=== PATIENT | male | born 1930 | race Caucasian/White ===

== ENCOUNTER 2017-03-28 13:18 | Emergency (ER) | payer MEDICARE | END 2017-03-28 14:29 | disposition left against medical advice (07) | LOC: UCEAST 13:18 | DX: M20.002 Unspecified deformity of left finger(s) (principal); Z53.21 Procedure and treatment not carried out due to patient leaving prior to being seen by health care provider ==

== ENCOUNTER 2018-02-22 16:04 | Emergency (ER) | payer MEDICARE ==
[2018-02-22 16:16] VITALS: BP 179/80
--- NOTE | 2018-02-22 16:59 | ED ---
Loi Caraballo Jade[facility] on 02/22/18 at 1655 . Shortness of Breath - HPI Summary HPI Summary: In Room Note: Pt is a 87 y/o male who presents to [facility] c/o SOB. Pt states he has become increasingly SOB over the past week, and is chronically SOB. 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 He went to [place] because he couldnt breathe. Last night he couldnt sleep because he stopped breathing when he would fall asleep. He denies any N/V/D, or CP. As per son, her looks pale, and normally is active but hasnt been in 6 months or so. Albuterol usually helps with the SOB, but not anymore. Nurses Note: SHORT OF BREATH when you wake up and more recently all the time. Pain 0/10 in intensity. Note: Pt on multiple medications for DM and HTN. Visit history significant for asbestosis. CT 2014 notes asbestos exposure changes, chronic lung findings, and emphysematous changes. - History of Current Complaint Chief Complaint: UCRespiratory Time Seen by Provider: 02/22/18 16:07 Hx Obtained From: Patient Onset/Duration: Gradual Onset, Lasting Weeks - 1 week, Still Present Aggrevating Factors: Movement Associated Signs & Symptoms: Cough (Productive) - Allergy/Home Medications Allergies/Adverse Reactions: Allergies Allergy/AdvReac Type Severity Reaction Status Date / Time No Known Allergies Allergy Verified 02/22/18 16:16 Home Medications: Home Medications Mometasone 220 MCG MDI * [Asmanex 220 MCG MDI *] 2 puff INH DAILY 02/22/18 [ History Confirmed 02/22/18] PMH/Surg Hx/FS Hx/Imm Hx Endocrine/Hematology History: Reports: Hx Diabetes Cardiovascular History: Reports: Hx Hypertension GI History: Reports: Other GI Disorders - hx colon ca History: Reports: Hx Renal Disease - abnormal gfr Musculoskeletal History: Reports: Hx Rheumatoid Arthritis Neurological History: Reports: Other Neuro Impairments/Disorders - ?tia - Cancer History Cancer Type, Location and Year: colon cancer 6yrs ago no radiation or chemo. - Surgical History Surgery Procedure, Year, and Place: colon resection 6 yrs ago.tonsilectomy Infectious Disease History: No Infectious Disease History: Denies: Traveled Outside the [place] in Last 30 Days - Family History Known Family History: Negative: Hypertension - Social History Lives: Alone Alcohol Use: None Substance Use Type: Reports: None Smoking Status (MU): Former Smoker Review of Systems - ROS Summary Review of Systems Summary: POSITIVE: SOB NEGATIVE: N/V/D, CP Negative: Fever Negative: Chest Pain Positive: Shortness Of Breath Negative: Vomiting, Diarrhea, Nausea All Other Systems Reviewed And Are Negative: Yes Physical Exam - Summary Physical Exam Summary: Appearance: The patient appears pale. Eyes: Conjunctiva are clear. ENT: The hearing is grossly normal, the pharynx is normal, and the TMs are normal. There is no muffled or hoarse voice. Neck: The neck is supple and there is no lymphadenopathy. Respiratory: The chest is nontender. The lungs are clear, with shallow breathing. His pulse oxygen is between 93 and 95. Frequent coughs. Cardiovascular: Heart is regular rate and rhythm. There is no murmur. Abdomen: The abdomen is soft and nontender. There is no organomegaly. Bowel sounds: present Musculoskeletal: Strength is intact. The patient moves all extremities. Neurological: The patient is alert. Psychological: The patient displays age appropriate behavior Skin: Negative for rashes. Triage Information Reviewed: Yes Vital Signs On Initial Exam: Initial Vitals Temp Pulse Resp BP Pulse Ox 98.6 F 105 24 179/80 96 02/22/18 16:10 02/22/18 16:10 02/22/18 16:10 02/22/18 16:10 02/22/18 16:10 Vital Signs Reviewed: Yes Diagnostics - Vital Signs Vital Signs Temp Pulse Resp BP Pulse Ox 02/22/18 16:10 98.6 F 105 24 179/80 96 - Laboratory Lab Statement: Any lab studies that have been ordered have been reviewed, and results considered in the medical decision making process. - EKG 16:06 Cardiac Rate: NL - 96 bpm EKG Rhythm: Sinus Rhythm EKG Interpretation: LBBB, no acute ischemia. Course/Dx - Course Course Of Treatment: 87 y/o with asbestosis and history of colon cancer with increasing SOB over the last week. The pt finds his SOB now significantly debilitating. His EKG shows a LBBB. The pt denies temperature in the [facility]. He is supine with a pulse Ox ranging from 93-95. He frequently coughs. Of particular note is the fact that his current medications are no longer working. It may be that pt has an acute condition on top of his chronic condition, such as an infection. In a conversation with the patient and the son , it was decided he would go to the ED for further evaluation and treatment as needed. Medications have been included in the original chart and reviewed. - Diagnoses Differential Diagnosis/HQI/PQRI: Positive: COPD Exacerbation, Pulmonary Embolism Provider Diagnoses: Acute dyspnea Discharge - Sign-Out/Discharge Documenting (check all that apply): Discharge/Admit/Transfer - Discharge Plan Condition: Stable Disposition: HOME Patient Education Materials: Dyspnea (ED) Referrals: Je Silveira MD [Primary Care Provider] - Additional Instructions: As we discussed: Go to the emergency room now. Your increasing shortness of breath and inability to use her medications with effect needs further evaluation. You may have an infection thing else new. You may need new medications or home oxygen in order to find a way to function in your everyday activities. - Billing Disposition and Condition Condition: STABLE Disposition: Home The documentation as recorded by the Loi bird Jade accurately reflects the service I personally performed and the decisions made by me, Cole Riddle MD.
== END 2018-02-22 17:06 | disposition home or self-care (01) ==
LOC: UCEAST 16:04
DX: R06.00 Dyspnea, unspecified (principal); R05 Cough; I44.7 Left bundle-branch block, unspecified; E11.9 Type 2 diabetes mellitus without complications; Z79.84 Long term (current) use of oral hypoglycemic drugs; I10 Essential (primary) hypertension; N28.9 Disorder of kidney and ureter, unspecified; M06.9 Rheumatoid arthritis, unspecified; Z85.038 Personal history of other malignant neoplasm of large intestine; Z87.891 Personal history of nicotine dependence
CPT/HCPCS: 93005; 99212; G0463

== ENCOUNTER 2018-02-22 17:21 | Inpatient (IN) | payer MEDICARE ==
[2018-02-22 18:26] LABS: ABS Basophils 0 10^3/ul (0-0.2); ABS Eosinophils 0.1 10^3/ul (0-0.6); ABS Lymphocytes 0.8 10^3/ul (1.0-4.8); ABS Monocytes 0.4 10^3/ul (0-0.8); ABS Neutrophils 4.7 10^3/ul (1.5-7.7); ABS Nucleated RBC 0 10^3/ul; Eosinophil % 1.4 % (0-6); Hematocrit 29 % (42-52); Lymphocyte % 13.6 % (25-47); Mean Corpuscular HGB Conc 34 g/dl (31-36); Mean Corpuscular Hemoglobin 31 pg (27-31); Mean Corpuscular Volume 91 fL (80-94); Mean Platelet Volume 8.4 um3 (7.4-10.4); Nucleated Red Blood Cells % 0; Platelet Count 158 10^3/ul (150-450); Red Blood Count 3.21 10^6/ul (4.0-5.4); Red Cell Distribution Width 14 % (10.5-15); White Blood Count 6.1 10^3/ul (3.5-10.8)
[2018-02-22 18:43] LABS: EGFR Non-African American 43.4 (>60)
[2018-02-22] MEDS ORDERED: Furosemide IV* 10 MG/ML VIAL (40 MG) IV SLOW PU ONE (18:55)
--- NOTE | 2018-02-22 19:15 | ED ---
Diana Caraballo Julia, scribed for Kwabena Henry MD on 02/22/18 at 1753 . Shortness of Breath - HPI Summary HPI Summary: This patient is a 87 year old M presenting to [facility] with a chief complaint of SOB for the past two days. Patient reports cough. SOB worsened with exertion and by laying flat. Denies CP and lower extremity swelling. - History of Current Complaint Chief Complaint: EDShortnessOfBreath Time Seen by Provider: 02/22/18 17:42 Hx Obtained From: Patient Onset/Duration: Lasting Days Timing: Constant Aggrevating Factors: Movement, Recumbent Position Associated Signs & Symptoms: Cough (Bloody Sputum) - Allergy/Home Medications Allergies/Adverse Reactions: Allergies Allergy/AdvReac Type Severity Reaction Status Date / Time No Known Allergies Allergy Verified 02/22/18 16:16 Home Medications: Home Medications Albuterol HFA INHALER* [Ventolin HFA Inhaler*] 1 puff INH Q6H PRN 02/22/18 [ History Confirmed 02/22/18] Aspirin TAB* [Aspirin 325 MG TAB*] 325 mg PO EVERY OTHER DAY 02/22/18 [History Confirmed 02/22/18] Lactose-Reduced Food [Ensure Active High Protein] 1.5 btl PO DAILY 02/22/18 [ History Confirmed 02/22/18] Mometasone 220 MCG MDI * [Asmanex 220 MCG MDI *] 1 puff INH BID 02/22/18 [ History Confirmed 02/22/18] metFORMIN* [Glucophage 1000 MG TAB *] 1,000 mg PO DAILY 02/22/18 [History Confirmed 02/22/18] PMH/Surg Hx/FS Hx/Imm Hx Endocrine/Hematology History: Reports: Hx Diabetes Cardiovascular History: Reports: Hx Hypertension GI History: Reports: Other GI Disorders - hx colon ca History: Reports: Hx Renal Disease - abnormal gfr Musculoskeletal History: Reports: Hx Rheumatoid Arthritis Neurological History: Reports: Other Neuro Impairments/Disorders - ?tia - Cancer History Cancer Type, Location and Year: colon cancer 6yrs ago no radiation or chemo. - Surgical History Surgery Procedure, Year, and Place: colon resection 6 yrs ago.tonsilectomy Infectious Disease History: No Infectious Disease History: Denies: Traveled Outside the US in Last 30 Days - Family History Known Family History: Negative: Hypertension - Social History Alcohol Use: None Substance Use Type: Reports: None Smoking Status (MU): Former Smoker Review of Systems Negative: Chest Pain Positive: Shortness Of Breath, Cough Negative: Myalgia, Edema All Other Systems Reviewed And Are Negative: Yes Physical Exam - Summary Physical Exam Summary: VITAL SIGNS: Reviewed. GENERAL: Patient is a well-developed and nourished male who is lying comfortable in the stretcher. Patient is not in any acute respiratory distress. HEAD AND FACE: No signs of trauma. No ecchymosis, hematomas or skull depressions. No sinus tenderness. EYES: PERRLA, EOMI x 2, No injected conjunctiva, no nystagmus. EARS: Hearing grossly intact. Ear canals and tympanic membranes are within normal limits. MOUTH: Oropharynx within normal limits. NECK: Supple, trachea is midline, no adenopathy, no JVD, no carotid bruit, no c- spine tenderness, neck with full ROM. CHEST: Symmetric, no tenderness at palpation LUNGS: decreased breath sounds bilaterally, crackles in bases bilaterally CVS: Regular rate and rhythm, S1 and S2 present, no murmurs or gallops appreciated. ABDOMEN: Soft, non-tender. No signs of distention. No rebound no guarding, and no masses palpated. Bowel sounds are normal. EXTREMITIES: FROM in all major joints, no edema, no cyanosis or clubbing. NEURO: Alert and oriented x 3. No acute neurological deficits. Speech is normal and follows commands. SKIN: Dry and warm Triage Information Reviewed: Yes Vital Signs On Initial Exam: Initial Vitals Temp Pulse Resp BP Pulse Ox 98.3 F 103 26 178/82 97 02/22/18 17:28 02/22/18 17:28 02/22/18 17:28 02/22/18 17:28 02/22/18 17:28 Vital Signs Reviewed: Yes Diagnostics - Vital Signs Vital Signs Temp Pulse Resp BP Pulse Ox 02/22/18 17:46 103 182/129 95 02/22/18 17:44 104 93 02/22/18 17:28 98.3 F 103 26 178/82 97 - Laboratory Lab Results: Lab Results 02/22/18 02/22/18 02/22/18 Range/Units 18:15 18:15 18:15 WBC 6.1 (3.5-10.8) 10^3/ul RBC 3.21 L (4.0-5.4) 10^6/ul Hgb 10.0 L (14.0-18.0) g/dl Hct 29 L (42-52) % MCV 91 (80-94) fL MCH 31 (27-31) pg MCHC 34 (31-36) g/dl RDW 14 (10.5-15) % Plt Count 158 (150-450) 10^3/ul MPV 8.4 (7.4-10.4) um3 Neut % (Auto) 77.0 (38-83) % Lymph % (Auto) 13.6 L (25-47) % [place] % (Auto) 7.3 H (0-7) % Eos % (Auto) 1.4 (0-6) % Baso % (Auto) 0.7 (0-2) % Absolute Neuts (auto) 4.7 (1.5-7.7) 10^3/ul Absolute Lymphs (auto) 0.8 L (1.0-4.8) 10^3/ul Absolute Monos (auto) 0.4 (0-0.8) 10^3/ul Absolute Eos (auto) 0.1 (0-0.6) 10^3/ul Absolute Basos (auto) 0 (0-0.2) 10^3/ul Absolute Nucleated RBC 0 10^3/ul Nucleated RBC % 0 APTT (26.0-36.3) seconds Sodium 136 L (139-145) mmol/L Potassium 4.3 (3.5-5.0) mmol/L Chloride 105 (101-111) mmol/L Carbon Dioxide 21 L (22-32) mmol/L Anion Gap 10 (2-11) mmol/L BUN 29 H (6-24) mg/dL Creatinine 1.53 H (0.67-1.17) mg/dL Est GFR ( Amer) 55.8 (>60) Est GFR (Non-Af Amer) 43.4 (>60) BUN/Creatinine Ratio 19.0 (8-20) Glucose 207 H (70-100) mg/dL Lactic Acid 1.4 (0.5-2.0) mmol/L Calcium 8.9 (8.6-10.3) mg/dL Total Bilirubin 0.70 (0.2-1.0) mg/dL AST 14 (13-39) U/L ALT 14 (7-52) U/L Alkaline Phosphatase 57 (34-104) U/L Total Creatine Kinase 112 (10-223) U/L CK-MB (CK-2) 5.6 (0.6-6.3) ng/mL Troponin I 0.07 H* (<0.04) ng/mL C-Reactive Protein 28.71 H (< 5.00) mg/L B-Natriuretic Peptide ( - 100) pg/mL Total Protein 6.6 (6.4-8.9) g/dL Albumin 3.8 (3.2-5.2) g/dL Globulin 2.8 (2-4) g/dL Albumin/Globulin Ratio 1.4 (1-3) 02/22/18 02/22/18 Range/Units 18:15 18:15 WBC (3.5-10.8) 10^3/ul RBC (4.0-5.4) 10^6/ul Hgb (14.0-18.0) g/dl Hct (42-52) % MCV (80-94) fL MCH (27-31) pg MCHC (31-36) g/dl RDW (10.5-15) % Plt Count (150-450) 10^3/ul MPV (7.4-10.4) um3 Neut % (Auto) (38-83) % Lymph % (Auto) (25-47) % [place] % (Auto) (0-7) % Eos % (Auto) (0-6) % Baso % (Auto) (0-2) % Absolute Neuts (auto) (1.5-7.7) 10^3/ul Absolute Lymphs (auto) (1.0-4.8) 10^3/ul Absolute Monos (auto) (0-0.8) 10^3/ul Absolute Eos (auto) (0-0.6) 10^3/ul Absolute Basos (auto) (0-0.2) 10^3/ul Absolute Nucleated RBC 10^3/ul Nucleated RBC % APTT 29.4 (26.0-36.3) seconds Sodium (139-145) mmol/L Potassium (3.5-5.0) mmol/L Chloride (101-111) mmol/L Carbon Dioxide (22-32) mmol/L Anion Gap (2-11) mmol/L BUN (6-24) mg/dL Creatinine (0.67-1.17) mg/dL Est GFR ( Amer) (>60) Est GFR (Non-Af Amer) (>60) BUN/Creatinine Ratio (8-20) Glucose (70-100) mg/dL Lactic Acid (0.5-2.0) mmol/L Calcium (8.6-10.3) mg/dL Total Bilirubin (0.2-1.0) mg/dL AST (13-39) U/L ALT (7-52) U/L Alkaline Phosphatase (34-104) U/L Total Creatine Kinase (10-223) U/L CK-MB (CK-2) (0.6-6.3) ng/mL Troponin I (<0.04) ng/mL C-Reactive Protein (< 5.00) mg/L B-Natriuretic Peptide 1685 H ( - 100) pg/mL Total Protein (6.4-8.9) g/dL Albumin (3.2-5.2) g/dL Globulin (2-4) g/dL Albumin/Globulin Ratio (1-3) Result Diagrams: 02/22/18 18:15 02/22/18 18:15 Lab Statement: Any lab studies that have been ordered have been reviewed, and results considered in the medical decision making process. - EKG 1849 Cardiac Rate: NL EKG Rhythm: Sinus Rhythm - 90 BPM EKG Interpretation: LBBB Course/Dx - Course Assessment/Plan: This patient is a 87-year-old male who presents to the emergency department with a chief complaint of having shortness of breath. He denies any chest pain. The patient has past medical history significant for COPD, diabetes, colon cancer, hypertension, rheumatoid arthritis, liver disease. Initially the patient was placed on a monitor technician, IV access was obtained. Blood test results without any significant abnormality except normocytic normochromic anemia, sodium 136, be 129, creatinine 1.53, glucose 207 , troponin is 0.07, CRP of 20.7, ENP is 1695. EKG is a sinus rhythm at 90 bpm with a left bundle branch block. Chest x-ray impression: In the ED course the patient was placed in the nasal cannula with 2 L of oxygen, the patient was given Lasix seem to be a significant elevated. I believe that HIS symptoms are secondary to congestive heart failure. I discuss my physical exam, findings and test results with Dr. Butler from the hospitalist services and he agrees to admit patient to his services. Patient is hemodynamically stable alert and oriented x 3. - Diagnoses Provider Diagnoses: CHF exacerbation, Elevated troponin, Renal insufficiency Discharge - Sign-Out/Discharge Documenting (check all that apply): Discharge/Admit/Transfer - Discharge Plan Condition: Stable Disposition: ADMITTED TO [facility] Referrals: Je Silveira MD [Primary Care Provider] - - Billing Disposition and Condition Condition: STABLE Disposition: Admitted to [facility] The documentation as recorded by the Diana bird Julia accurately reflects the service I personally performed and the decisions made by me, Kwabena Henry MD.
--- NOTE | 2018-02-22 19:24 | RAD ---
INDICATION: Difficulty breathing COMPARISON: CT of the chest January 03, 2015 that demonstrate centrilobular emphysematous changes and calcified pleural plaques TECHNIQUE: PA and lateral views of the chest were obtained. FINDINGS: There is mild cardiomegaly similar to the previous CT of the chest. There is mild calcification overlying the arch of the aorta. There are patchy densities overlying the bilateral lungs. The increased density overlying the upper lungs correspond to calcified pleural plaque seen on the previous CT of the chest. Visualized bones are normal for the patient's age. There is no radiographic evidence of free air beneath the diaphragm IMPRESSION: 1. CHEST X-RAY FINDINGS COULD BE DUE TO CARDIOGENIC PULMONARY EDEMA ACCORDING TO THE PATIENT'S CLINICAL PRESENTATION. 2. INCREASED DENSITIES OVERLYING THE LUNGS CORRESPONDING TO CALCIFIED PLEURAL PLAQUE SEEN ON THE PREVIOUS CT OF THE CHEST. PLEASE CORRESPOND TO A HISTORY OF ASBESTOS EXPOSURE.
[2018-02-22] MEDS ORDERED: Acetaminophen TAB* 325 MG PO PRN (19:54)
[2018-02-22] MEDS ORDERED: Senna TAB PO PRN (19:54)
[2018-02-22] MEDS ORDERED: Al Hydrox/Mg Hydrox/Simet LIQ* 30 ML UDC PO PRN (19:54)
[2018-02-22] MEDS ORDERED: Ondansetron 40 MG VIAL* 2 MG/ML 20 ML VIAL IV PRN (19:54)
[2018-02-22] MEDS ORDERED: Docusate CAP* 100 MG PO PRN (19:54)
[2018-02-22] MEDS ORDERED: Aspirin TAB* 325 MG PO ONE (19:59)
[2018-02-22] MEDS ORDERED: Dextrose 50% Syringe 50 ML* 25 GM/50 ML SYRINGE IV PUSH PRN (19:59)
[2018-02-22] MEDS ORDERED: Albuterol 2.5 MG/3 ML NEB.SOL* (0.083%) INH PRN (20:02)
[2018-02-22] MEDS ORDERED: Nitroglycerin 2% OINT* 1 GM PAK TOPICAL ONE (20:03)
--- NOTE | 2018-02-22 20:35 | RAD ---
INDICATION: Shortness of breath COMPARISON: CT of the chest dated January 03, 2015 TECHNIQUE: Axial source images of the chest were acquired without intravenous contrast from just above the lung apices to the base of the diaphragm. Coronal and sagittal reconstructed images were acquired. FINDINGS: Again seen are calcified pleural plaques along the anterior superior margin of the bilateral lungs and at the bilateral lung bases immediately above the diaphragm. There are patchy groundglass density scattered throughout the lungs the largest in the right lower lobe abutting the fissure measuring 1.5 x 3 cm in the axial plane (axial image 31). At the left lung base there is a pleural-based partially linear partially nodular density, the nodular component measuring 1.5 x 1.9 cm (image 45), slightly larger when compared to the previous CT examination. There is a small right and trace left pleural effusion. The heart is normal in size. There is no evidence of pericardial effusion. There is coarse calcification of the thoracic aorta, coronary arteries and aortic ring. There is no pericardial effusion. There is no pathologic aneurysmal dilatation of the aorta. There is no readily apparent mediastinal, hilar, or axillary lymphadenopathy. Degenerative changes of the thoracic spine include loss of intervertebral disc height consistent with the patient's age. Limited views of the upper abdomen show no acute abnormalities. IMPRESSION: 1. Relative to the previous CT of the chest there has been interval development of a small to moderate right-sided pleural effusion, trace left pleural effusion and patchy groundglass densities. The differential includes pulmonary edema due to vascular congestion, multifocal pneumonia, inflammatory lung disease or neoplasm. 2. Stable findings include coarsely calcified plaques along the superior anterior pleura and at the bilateral lung bases adjacent to the diaphragm. Please correlate to exposure to asbestos. 3. Additional chronic and degenerative changes described in the body the report unlikely to be directly related to the patient's current clinical presentation.
[2018-02-22 21:13] LABS: Urine Appearance Clear; Urine Blood 1+ (Negative); Urine Color Yellow; Urine Ketones Negative (Negative); Urine Protein 2+(100 mg/dL) (Negative); Urine Specific Gravity 1.009 (1.010-1.030); Urine Urobilinogen Negative (Negative)
[2018-02-22] MEDS: Heparin VIAL(*) 5000 UNITS/ML VIAL (FIVE THOUSAND) SUBCUT SCH (21:41)
--- NOTE | 2018-02-22 22:56 | HP ---
CC: Dr. Je Silveira * HISTORY AND PHYSICAL: DATE OF ADMISSION: 02/22/18 TIME OF EVALUATION: 1999 PRIMARY CARE PHYSICIAN: Dr. Je Silveira. CHIEF COMPLAINT: Shortness of breath. HISTORY OF PRESENT ILLNESS: This is an 87-year-old male with a past medical history of COPD, diabetes and hypertension, who presents to the emergency room with worsening shortness of breath. His son is at the bedside as well. He states that he has had issues chronically for shortness of breath over the past week; it has gotten significantly worse where he cannot do any of his normal exertional activity such as laundry, mowing a lawn. He even states he will get dyspneic at rest and he also has orthopnea and feels like he cannot catch his breath. He has a chronic cough, occasionally it is wet, has not changed in severity. He denies any chest pain, nausea, vomiting, no lower extremity swelling, no abdominal pain, no diarrhea, no urinary symptoms, no fevers or rash. He states over the past year he has been losing weight about 10 pounds. He does stay on a low-salt diet. He does have an albuterol inhaler. He states sometimes it helps, sometimes it is not about 50% relief in his shortness of breath. Otherwise, remainder of review of systems negative. The patient arrived to the emergency room concerned for acute congestive heart failure, was given 40 mg of IV Lasix and was referred to the hospitalist service for further evaluation. PAST MEDICAL HISTORY: 1. COPD, on room air. 2. History of colon cancer, status post surgery. 3. Diabetes. 4. Hypertension. The patient states he does not take his blood pressure medications as it does not seem to be working. MEDICATIONS: 1. Lactose, reduced. 2. Ensure daily. 3. Asmanex 220 inhaled, but b.i.d. 4. Aspirin 325 mg p.o. every other day. 5. Albuterol inhaler 1 puff q.6 hours as needed. 6. Metformin 1000 mg p.o. daily. ALLERGIES: No known drug allergies. FAMILY HISTORY: Reviewed, noncontributory. SOCIAL HISTORY: The patient lives alone; he is independent of ADLs. He still drives. He has a remote smoking history, quit 40 years ago, 15 pack years, no recent alcohol use. He does have asbestos exposure. His healthcare proxies are his son Aakash, his daughter Meredith. CODE STATUS: The patient confirmed that he is a DNR, DNI and he has a MOLST form completed. REVIEW OF SYSTEMS: A 14-point review of systems as mentioned in the HPI, otherwise negative, with the exception the patient does complain of chronic nasal congestion. PHYSICAL EXAMINATION GENERAL: He does have intermittent conversational dyspnea; his son is at the bedside. VITAL SIGNS: 98.2, pulse rate 95, respiratory rate 36, oxygen saturation 94% on room air, blood pressure 177/113. HEENT: Head: Normocephalic. Pupils are equal and reactive, anicteric. Oropharynx: Mucous membranes moist. NECK: Supple. No lymphadenopathy. RESPIRATORY: Poor aeration, prolonged expiratory phase and bilateral rales. No increased work of breathing. No retractions. CARDIAC: Regular rate and rhythm. Soft systolic murmur heard throughout. ABDOMEN: Morbidly obese, soft, nontender, some distention. EXTREMITIES: No clubbing, cyanosis, or edema. +1 DPs. NEUROLOGICAL: Alert and oriented x3. No focal neurologic deficits. DIAGNOSTIC STUDIES/LAB DATA: White count is 6.1, hemoglobin 10, hematocrit 29 , platelets 158. Sodium 136, potassium 4.3, chloride 105, bicarb 21, BUN 29, creatinine 1.53, glucose 207. Bili is 0.7, AST is 14, ALT is 14. Troponin 0.07 , CRP is 28, BNP is 1685. RADIOGRAPHIC DATA: Chest x-ray showed chest x-ray findings could be due to cardiogenic pulmonary edema according to the patient's clinical presentation, increased densities overlying the lungs corresponding to calcified pleural plaque seen on the previous CT of the chest. Please correspond with history of asbestos exposure. EKG shows left bundle-branch block, which is not new. ASSESSMENT: This is an 87-year-old male with a past medical history of chronic obstructive pulmonary disease, diabetes and hypertension, who presents to the emergency room with worsening shortness of breath. 1. Shortness of breath. Assessment: I suspect this is multifactorial. I suspect he has acute congestive heart failure, could be related to progression of his lung disease. His chest x-ray is suggestive of CHF. He also has a history of asbestos exposure, which is seen on the chest x-ray film. I wonder if the patient needs more aggressive pulmonary management including possibility of obstructive sleep apnea at night and possibly the need of oxygen with exerting himself. Plan: I think further identifying his underlying lung disease with a CAT scan and ordering an echocardiogram. We will continue to trend his troponin, continue his aspirin, and continue Lasix in the morning. We will continue him on his albuterol and substitute with Dulera as we do not have Asmanex on formulary. I will also order overnight pulse oximetry recording. We will also order Flonase b.i.d. I will repeat his blood work and his lipid panel in the morning. 2. Acute on chronic kidney injury. The patient with a bump in his creatinine base from 2014. His BUN is also elevated; this could be related to his acute congestive heart failure. Plan: Renally dose his medications and repeat his labs in the morning. 3. Chronic medical problems Diabetes, on metformin. Assessment and plan: We will hold his oral agents, place him on a Lispro sliding scale. Chronic obstructive pulmonary disease. As mentioned, albuterol and Dulera. Hypertension. The patient states he has not been taking his blood pressure medications, not sure what they were, but he did not feel like they were doing any good. We will start with Nitropaste for now and he is getting Lasix and follow up accordingly. FEN: We will place patient on a low salt diet, I's and O's and daily weights. DVT prophylaxis: The patient scores high risk, place him on heparin subcu t.i.d. Code status: The patient confirms he is a DNR, DNI. We will have him fill out a MOLST form this evening. PATIENT TIME: Greater than 60 minutes was spent doing the history and physical , more than half the time spent in direct patient contact. [id number] #: [id number]
[2018-02-22] MEDS: Mometasone/Formoter 200/5 MDI INH SCH (23:04)
[2018-02-22] MEDS ORDERED: Magnesium Sulfate 1 GM IV* 1 GM/100 ML BAG IV ONE (23:52)
[2018-02-23] MEDS: Fluticasone NASAL SPRAY 50MCG* 16 gm SPRAY BTL BOTH NARES SCH ×2 (01:40→22:28)
[2018-02-23] MEDS: Heparin VIAL(*) 5000 UNITS/ML VIAL (FIVE THOUSAND) SUBCUT SCH ×3 (06:09→22:30)
[2018-02-23 06:57] LABS: ABS Basophils 0 10^3/ul (0-0.2); ABS Eosinophils 0.2 10^3/ul (0-0.6); ABS Monocytes 0.4 10^3/ul (0-0.8); ABS Neutrophils 3.2 10^3/ul (1.5-7.7); ABS Nucleated RBC 0 10^3/ul; Eosinophil % 3.1 % (0-6); Hematocrit 27 % (42-52); Hemoglobin 9.4 g/dl (14.0-18.0); Lymphocyte % 20.1 % (25-47); Mean Corpuscular HGB Conc 34 g/dl (31-36); Mean Corpuscular Hemoglobin 31 pg (27-31); Mean Corpuscular Volume 90 fL (80-94); Mean Platelet Volume 8.3 um3 (7.4-10.4); Nucleated Red Blood Cells % 0; Platelet Count 141 10^3/ul (150-450); Red Blood Count 3.04 10^6/ul (4.0-5.4); Red Cell Distribution Width 14 % (10.5-15); White Blood Count 4.8 10^3/ul (3.5-10.8)
[2018-02-23 07:14] LABS: EGFR Non-African American 43.4 (>60)
[2018-02-23] MEDS ORDERED: Dextrose 50% Syringe 50 ML* 25 GM/50 ML SYRINGE IV PUSH PRN (07:28)
[2018-02-23] MEDS ORDERED: Insulin LISPRO* 1 UNITS UNIT SUBCUT SCH (07:30)
[2018-02-23] MEDS: Mometasone/Formoter 200/5 MDI INH SCH ×2 (08:42→20:18)
[2018-02-23] MEDS ORDERED: LACTOSE REDUCED FOOD PO SCH (09:00)
[2018-02-23] MEDS ORDERED: Furosemide IV* 10 MG/ML VIAL (40 MG) IV SCH (09:00)
[2018-02-23] MEDS ORDERED: Perflutren Lipid Microsphere* 3 ML VIAL ONE (09:35)
[2018-02-23] MEDS: Aspirin 81 mg CHEW TAB* 81 MG TAB.CHEW PO SCH (09:42)
[2018-02-23] MEDS: Insulin LISPRO* 1 UNITS UNIT SUBCUT SCH ×3 (09:42→17:13)
[2018-02-23] MEDS: Metoprolol Tartrate TAB* 25 MG PO SCH ×2 (09:43→22:28)
--- NOTE | 2018-02-23 12:05 | ECHO ---
Patient: GINGER NGUYEN [facility] Rec#: [id number] : 1930 Date: 02/23/2018 Age: 87y Height: 165.1 cm / 65.0 in Weight: 72.57 kg / 159.9 lbs Sex: M BSA: 1.8 Room#: [facility] Admit Date#: 02/22/2018 Type: Inpatient Referring: Michelle Peraza Reading: Jose Alejandro Soares MD Healthcare Economics Manager: Jina Rockwell PETR CC: Je Silveira MD Transthoracic Echocardiogram Indication: CHF BP: 156/72 HR: 90 Rhythm: NSR with PACs Findings History: COPD,DM,HTN,soft systolic murmur. Definity used to enhance images. Technical Comments: The study is technically limited due to the patient's history of COPD. Completed at 1050. Left Ventricle: The left ventricular size is moderate to severely dilated. There are multiple regional wall motion abnormalities. There is moderately decreased left ventricular systolic function. The estimated ejection fraction is 30-35%. There is a left ventricular septal wall motion abnormality observed, possibly due to the presence of a right bundle branch block. Abnormal left ventricular diastolic function is observed. Left Atrium: The left atrium is moderate to severely dilated. Right Ventricle: The right ventricular cavity size is normal. The right ventricular global systolic function is normal. Right Atrium: The right atrium is mildly dilated. Aortic Valve: The aortic valve is trileaflet. The aortic valve leaflets are mildly thickened. There is moderate aortic regurgitation. There is mild aortic stenosis.The degree of may be underestimated due to low EF The highest aortic valve velocity was obtained with the standard probe from the A5C view. Mitral Valve: The mitral valve leaflets are mildly thickened. There is moderate mitral regurgitation. There is no evidence of mitral stenosis. Tricuspid Valve: The tricuspid valve leaflets are normal. Unable to estimate the right ventricular systolic pressure. There is no tricuspid stenosis. Pulmonic Valve: The pulmonic valve appears normal. There is no evidence of pulmonic regurgitation. There is no pulmonic stenosis. Pericardium: There is no pericardial effusion. A pericardial fat pad is visualized. Aorta: There is no dilatation of the ascending aorta. There is no dilatation of the aortic arch. There is no dilation of the aortic root. Pulmonary Artery: The main pulmonary artery appears normal. Venous: The venous system is not well visualized. Contrast: Definity was used to optimize study. Intravenous contrast was used to enhance endocardial border definition. Summary: There was not any prior study for comparison. Conclusions There is moderately decreased left ventricular systolic function. The estimated ejection fraction is 30-35%. There are multiple regional wall motion abnormalities. There is a left ventricular septal wall motion abnormality observed, possibly due to the presence of a right bundle branch block. The left atrium is moderate to severely dilated. There is moderate aortic regurgitation. There is mild aortic stenosis.The degree of may be underestimated due to low EF There is moderate mitral regurgitation. Unable to estimate the right ventricular systolic pressure. There is no pericardial effusion. Measurements Name Value Normal Range RVIDd (AP) 2D 3.1 cm (0.9 - 2.6) RVDdMajor (2D) 2.9 cm (2.2 - 4.4) RAd ISD 4CH 5 cm (3.4 - 4.9) RA (A4C)W 3.7 cm (2.9 - 4.6) IVSd (2D) 0.9 cm (0.6 - 1) LVPWd (2D) 1.1 cm (0.6 - 1) LVIDd (2D) 6.5 cm (3.6 - 5.4) LVIDs (2D) 5.2 cm - LV FS (2D) 19 % (25 - 45) Aortic Annulus 1.9 cm (1.4 - 2.6) Ao root diameter (2D) 2.9 cm (2.1 - 3.5) Ascending Ao 2.4 cm (2.1 - 3.4) Aortic arch 2.7 cm (1.8 - 3.4) Descending Ao 0.5 cm - LA dimension (AP) 2D 4.7 cm (2.3 - 3.8) LAd ISD 4CH 5.7 cm (2.9 - 5.3) LA ISD 4CH W 5.1 cm (2.5 - 4.5) Name Value Normal Range LA ESV SP 4CH (A/L) 80 ml - LA ESV SP 2CH (A/L) 63 ml - LA ESV BP (A/L) 72 ml - LA ESV BP (A/L) index 39.73 ml/m2 - LA ESV SP 4CH (MOD) 74 ml - LA ESV SP 2CH (MOD) 62 ml - Name Value Normal Range MV E-wave Vmax 1.3 m/sec - MV deceleration time 125 msec - LV septal e' Vmax 0.11 m/sec - LV lateral e' Vmax 0.13 m/sec - LV E:e' septal ratio 11.81 ratio - LV E:e' lateral ratio 10 ratio - Name Value Normal Range AV Vmax 2.3 m/sec - AV VTI 45.3 cm - AV peak gradient 20.46 mmHg - AV mean gradient 11.09 mmHg - LVOT diameter 2 cm - LVOT Vmax 0.9 m/sec - LVOT VTI 15.6 cm - LVOT peak gradient 3.29 mmHg - LVOT mean gradient 1.38 mmHg - SV LVOT 46.79 ml - LISSET (continuity Vmax) 1.3 cm2 - LISSET (continuity VTI) 1.1 cm2 - AR PHT 236 msec - AR peak gradient 63.76 mmHg - Name Value Normal Range MR Vmax 5.5 m/sec - MR VTI 176.5 cm - Name Value Normal Range PV Vmax 1.2 m/sec - PV peak gradient 5.39 mmHg -
[2018-02-23] MEDS: Lisinopril TAB* 5 MG PO SCH (14:31)
--- NOTE | 2018-02-23 14:32 | PN ---
Subjective Date of Service: 02/23/18 Interval History: Patient feels much better today. Breathing is back to baseline. Patient states that his exercise tolerance has been decreasing progressively for 2 years. Patient states that he used to be able to chop wood every day but on the day of admission was unable to get out of bed without shortness of breath. Patient states that his blood pressure is always high and that he stopped taking his blood pressure medications about 2 years ago. Patient states that he has been coughing up a large amount of phlegm today without blood in it. Patient denies F /C, N/V, CP, abdominal pain, dysuria, palpitations, dizziness, or other pain. Family History: Unchanged from Admission Social History: Unchanged from Admission Past Medical History: Unchanged from Admission Objective Active Medications: Acetaminophen (Tylenol Tab*) 650 mg PO Q4H PRN PRN Reason: FEVER/PAIN Al Hydrox/Mg Hydrox/Simethicone (Maalox Plus*) 30 ml PO Q6H PRN PRN Reason: INDIGESTION Albuterol (Ventolin 2.5 Mg/3 Ml Neb.Jessica*) 2.5 mg INH Q4H PRN PRN Reason: SOB/WHEEZING Aspirin (Aspirin 81 Mg Chew Tab*) 81 mg PO DAILY [facility] Last Admin: 02/23/18 09:42 Dose: 81 mg Dextrose (D50w Syringe 50 Ml*) 12.5 gm IV PUSH .FOR FS < 60 - SS PRN PRN Reason: FS < 60 Dextrose (D50w Syringe 50 Ml*) 12.5 gm IV PUSH .FOR FS < 60 - SS PRN PRN Reason: FS < 60 Docusate Sodium (Colace Cap*) 100 mg PO BID PRN PRN Reason: CONSTIPATION Last Admin: 02/23/18 09:43 Dose: 100 mg Fluticasone Propionate (Flonase Nasal [place] 50mcg*) 2 spray BOTH NARES 2100 [facility] Last Admin: 02/23/18 01:40 Dose: 2 spray Furosemide (Lasix Iv*) 40 mg IV DAILY [facility] Last Admin: 02/23/18 10:30 Dose: 40 mg Heparin Sodium (Porcine) (Heparin Vial(*)) 5,000 units SUBCUT Q8HR [facility] Last Admin: 02/23/18 13:19 Dose: 5,000 units Insulin Human Lispro (Humalog*) 0 units SUBCUT AC [facility] PRN Reason: Protocol Last Admin: 02/23/18 13:18 Dose: 2 units Lisinopril (Prinivil Tab*) 5 mg PO DAILY [facility] Metoprolol Tartrate (Lopressor Tab*) 25 mg PO BID [facility] Last Admin: 02/23/18 09:43 Dose: 25 mg Mometasone Furoate/Formoterol Fumar (Dulera 200/5 Mdi*) 2 puff INH BID [facility] Last Admin: 02/23/18 08:42 Dose: 2 puff Ondansetron HCl (Zofran 40 Mg Vial*) 4 mg IV Q4H PRN PRN Reason: NAUSEA/VOMITING Senna (Senokot Tab*) 1 tab PO BID PRN PRN Reason: CONSTIPATION Last Admin: 02/23/18 09:41 Dose: 1 tab Vital Signs - 8 hr 02/23/18 02/23/18 02/23/18 07:58 08:00 08:46 Temperature 97.9 F Pulse Rate 81 80 Respiratory 16 16 16 Rate Blood Pressure 165/69 (mmHg) O2 Sat by Pulse 95 96 Oximetry 02/23/18 11:42 Temperature 97.5 F Pulse Rate 73 Respiratory 20 Rate Blood Pressure 131/49 (mmHg) O2 Sat by Pulse 95 Oximetry Oxygen Devices in Use Now: None Appearance: Patient is an 87yo male who appears stated age and is sitting in the bed in [facility]. Eyes: No Scleral Icterus, PERRLA Ears/Nose/Mouth/Throat: NL Teeth, Lips, Gums, Clear Oropharnyx, Mucous Membranes Moist Neck: NL Appearance and Movements; NL JVP, Trachea Midline Respiratory: Symmetrical Chest Expansion and Respiratory Effort, Clear to Auscultation Cardiovascular: NL Sounds; No Murmurs; No JVD, RRR, No Edema Abdominal: NL Sounds; No Tenderness; No Distention, No Hepatosplenomegaly Lymphatic: No Cervical Adenopathy Extremities: No Edema, No Clubbing, Cyanosis Skin: No Rash or Ulcers, No Nodules or Sclerosis Neurological: Alert and Oriented x 3, NL Sensation, NL Muscle Strength and Tone , - - CN II-XII intact. Result Diagrams: 02/23/18 06:46 02/23/18 06:46 Additional Lab and Data: Lab Results Assess/Plan/Problems-Billing Assessment: Patient is an 87yo male with a PMH for COPD, HTN, DM II, Colon cancer s/p resection who presents with severe SOB which has improved after diuresis with newly found HFrEF. - Patient Problems (1) Acute HFrEF (heart failure with reduced ejection fraction) Current Visit: Yes Status: Acute Code(s): I50.21 - ACUTE SYSTOLIC ( CONGESTIVE) HEART FAILURE SNOMED Code(s): 706343732 Comment: Severe SOB with worsening course over the past 2 years with QUINONES. Denies leg swelling, orthopnea, history of OH or chest pain. Improving with diuresis. Started on Metoprolol and Lisinopril. Would not be interested in invasive procedures such as cardiac catheterization. (2) Demand ischemia Current Visit: Yes Status: Acute Code(s): I24.8 - OTHER FORMS OF ACUTE ISCHEMIC HEART DISEASE SNOMED Code(s): 683724490 Comment: Slightly elevated troponin at .11 peak in setting of heart failure exacerbation and hypertension. Likely demand ischemia. No utility in stress test as patient is not interested in cardiac cath. (3) Emphysema lung Current Visit: Yes Status: Acute Code(s): J43.9 - EMPHYSEMA, UNSPECIFIED SNOMED Code(s): 94244706 Comment: Continue Dulera and Albuterol nubulizer. No wheezing, significant sputum production. (4) Asbestosis Current Visit: Yes Status: Acute Code(s): J61 - PNEUMOCONIOSIS DUE TO ASBESTOS AND OTHER MINERAL FIBERS SNOMED Code(s): 30905281 Comment: Pleural plaques noted on CT chest. (5) Hypertension Current Visit: Yes Status: Acute Code(s): I10 - ESSENTIAL (PRIMARY) HYPERTENSION SNOMED Code(s): 50106066 Comment: Patient states that his blood pressure is consistently high and that he stopped taking his BP meds 2 years ago because they weren't working. Could be contributing to cardiomyopathy. (6) Diabetes Current Visit: Yes Status: Acute Code(s): E11.9 - TYPE 2 DIABETES MELLITUS WITHOUT COMPLICATIONS SNOMED Code(s): 68015768 Comment: Hemoglobin A1c 7.4%. Moderate control with SSI. Continue in hospital. Resume metformin at discharge. Can increase dose to 2,000mg daily. (7) Anemia Current Visit: Yes Status: Acute Code(s): D64.9 - ANEMIA, UNSPECIFIED SNOMED Code(s): 487490130 Comment: Normocytic, Unknown duration. B12, Folate, TSH and Iron studies pending. (8) DVT prophylaxis Current Visit: Yes Status: Acute Code(s): JII7154 - SNOMED Code(s): 520718960 Comment: Heparin SubQ. (9) DNR (do not resuscitate) Current Visit: Yes Status: Acute Status and Disposition: Inpatient.
[2018-02-24] MEDS: Heparin VIAL(*) 5000 UNITS/ML VIAL (FIVE THOUSAND) SUBCUT SCH ×3 (05:36→21:30)
[2018-02-24 06:08] LABS: ABS Basophils 0 10^3/ul (0-0.2); ABS Eosinophils 0.2 10^3/ul (0-0.6); ABS Lymphocytes 0.9 10^3/ul (1.0-4.8); ABS Monocytes 0.4 10^3/ul (0-0.8); ABS Neutrophils 3.6 10^3/ul (1.5-7.7); ABS Nucleated RBC 0 10^3/ul; Eosinophil % 3.4 % (0-6); Hematocrit 27 % (42-52); Hemoglobin 9.2 g/dl (14.0-18.0); Lymphocyte % 17.5 % (25-47); Mean Corpuscular HGB Conc 34 g/dl (31-36); Mean Corpuscular Hemoglobin 31 pg (27-31); Mean Corpuscular Volume 92 fL (80-94); Mean Platelet Volume 8.9 um3 (7.4-10.4); Nucleated Red Blood Cells % 0.1; Platelet Count 138 10^3/ul (150-450); Red Blood Count 2.93 10^6/ul (4.00-5.40); Red Cell Distribution Width 13 % (10.5-15); White Blood Count 5.1 10^3/ul (3.5-10.8)
[2018-02-24 06:22] LABS: EGFR Non-African American 36.7 (>60)
[2018-02-24] MEDS: Lisinopril TAB* 5 MG PO SCH (08:12)
[2018-02-24] MEDS: Metoprolol Succinate XL TAB* 50 MG PO SCH (08:12)
[2018-02-24] MEDS: Furosemide TAB* 40 MG PO SCH (08:12)
[2018-02-24] MEDS: Aspirin 81 mg CHEW TAB* 81 MG TAB.CHEW PO SCH (08:12)
[2018-02-24] MEDS: Insulin LISPRO* 1 UNITS UNIT SUBCUT SCH ×3 (08:12→17:44)
[2018-02-24] MEDS: Mometasone/Formoter 200/5 MDI INH SCH ×2 (08:23→20:03)
--- NOTE | 2018-02-24 15:00 | PN ---
Subjective Date of Service: 02/24/18 Interval History: Patient continues to feel well. Patient denies F/C, N/V, abdominal pain, diarrhea, CP, SOB, leg swelling, dizziness on standing, palpitations, or other pain. Patient is still making large amounts of urine. Family History: Unchanged from Admission Social History: Unchanged from Admission Past Medical History: Unchanged from Admission Objective Active Medications: Acetaminophen (Tylenol Tab*) 650 mg PO Q4H PRN PRN Reason: FEVER/PAIN Al Hydrox/Mg Hydrox/Simethicone (Maalox Plus*) 30 ml PO Q6H PRN PRN Reason: INDIGESTION Albuterol (Ventolin 2.5 Mg/3 Ml Neb.Jessica*) 2.5 mg INH Q4H PRN PRN Reason: SOB/WHEEZING Aspirin (Aspirin 81 Mg Chew Tab*) 81 mg PO DAILY [facility] Last Admin: 02/24/18 08:12 Dose: 81 mg Dextrose (D50w Syringe 50 Ml*) 12.5 gm IV PUSH .FOR FS < 60 - SS PRN PRN Reason: FS < 60 Dextrose (D50w Syringe 50 Ml*) 12.5 gm IV PUSH .FOR FS < 60 - SS PRN PRN Reason: FS < 60 Docusate Sodium (Colace Cap*) 100 mg PO BID PRN PRN Reason: CONSTIPATION Last Admin: 02/23/18 09:43 Dose: 100 mg Fluticasone Propionate (Flonase Nasal [place] 50mcg*) 2 spray BOTH NARES 2100 [facility] Last Admin: 02/23/18 22:28 Dose: 2 spray Furosemide (Lasix Tab*) 40 mg PO DAILY [facility] Last Admin: 02/24/18 08:12 Dose: 40 mg Heparin Sodium (Porcine) (Heparin Vial(*)) 5,000 units SUBCUT Q8HR [facility] Last Admin: 02/24/18 13:26 Dose: 5,000 units Insulin Human Lispro (Humalog*) 0 units SUBCUT AC [facility] PRN Reason: Protocol Last Admin: 02/24/18 12:24 Dose: 4 units Lisinopril (Prinivil Tab*) 5 mg PO DAILY [facility] Last Admin: 02/24/18 08:12 Dose: 5 mg Metoprolol Succinate (Toprol Xl Tab*) 50 mg PO DAILY [facility] Last Admin: 02/24/18 08:12 Dose: 50 mg Mometasone Furoate/Formoterol Fumar (Dulera 200/5 Mdi*) 2 puff INH BID [facility] Last Admin: 02/24/18 08:23 Dose: 2 puff Ondansetron HCl (Zofran 40 Mg Vial*) 4 mg IV Q4H PRN PRN Reason: NAUSEA/VOMITING Senna (Senokot Tab*) 1 tab PO BID PRN PRN Reason: CONSTIPATION Last Admin: 02/23/18 09:41 Dose: 1 tab Vital Signs - 8 hr 02/24/18 02/24/18 02/24/18 07:34 07:51 11:12 Temperature 97.6 F 99.3 F Pulse Rate 70 66 Respiratory 16 16 16 Rate Blood Pressure 143/58 127/54 (mmHg) O2 Sat by Pulse 98 99 Oximetry Oxygen Devices in Use Now: None Appearance: Patient is an 87yo male who appears stated age and is sitting in the bed in [facility]. Eyes: No Scleral Icterus, PERRLA Ears/Nose/Mouth/Throat: NL Teeth, Lips, Gums, Clear Oropharnyx, Mucous Membranes Moist Neck: NL Appearance and Movements; NL JVP, Trachea Midline Respiratory: Symmetrical Chest Expansion and Respiratory Effort, Clear to Auscultation Cardiovascular: NL Sounds; No Murmurs; No JVD, RRR, No Edema Abdominal: NL Sounds; No Tenderness; No Distention, No Hepatosplenomegaly Lymphatic: No Cervical Adenopathy Extremities: No Edema, No Clubbing, Cyanosis Skin: No Rash or Ulcers, No Nodules or Sclerosis Neurological: Alert and Oriented x 3, NL Sensation, NL Muscle Strength and Tone , - - CN II-XII intact. Result Diagrams: 02/24/18 05:33 02/24/18 05:32 Additional Lab and Data: Lab Results Assess/Plan/Problems-Billing Assessment: Patient is an 87yo male with a PMH for COPD, HTN, DM II, Colon cancer s/p resection who presents with severe SOB which has improved after diuresis with newly found HFrEF. - Patient Problems (1) Acute HFrEF (heart failure with reduced ejection fraction) Current Visit: Yes Status: Acute Code(s): I50.21 - ACUTE SYSTOLIC ( CONGESTIVE) HEART FAILURE SNOMED Code(s): 966893572 Comment: Severe SOB with worsening course over the past 2 years with QUINONES. Denies leg swelling, orthopnea, history of SD or chest pain. Improving with diuresis. Started on Metoprolol and Lisinopril. Would not be interested in invasive procedures such as cardiac catheterization. Would recommend repeat echo in 3 months after adequate treatment of hypertension. (2) Demand ischemia Current Visit: Yes Status: Acute Code(s): I24.8 - OTHER FORMS OF ACUTE ISCHEMIC HEART DISEASE SNOMED Code(s): 564047089 Comment: Slightly elevated troponin at .11 peak in setting of heart failure exacerbation and hypertension. Likely demand ischemia. No utility in stress test as patient is not interested in cardiac cath. (3) Emphysema lung Current Visit: Yes Status: Acute Code(s): J43.9 - EMPHYSEMA, UNSPECIFIED SNOMED Code(s): 24817741 Comment: Continue Dulera and Albuterol nubulizer. No wheezing Sputum production resolved. (4) Asbestosis Current Visit: Yes Status: Acute Code(s): J61 - PNEUMOCONIOSIS DUE TO ASBESTOS AND OTHER MINERAL FIBERS SNOMED Code(s): 11484532 Comment: Pleural plaques noted on CT chest. (5) Hypertension Current Visit: Yes Status: Acute Code(s): I10 - ESSENTIAL (PRIMARY) HYPERTENSION SNOMED Code(s): 95613253 Comment: Patient states that his blood pressure is consistently high and that he stopped taking his BP meds 2 years ago because they weren't working. Could be contributing to cardiomyopathy. Controlled on Metoprolol and Lisinopril. (6) Diabetes Current Visit: Yes Status: Acute Code(s): E11.9 - TYPE 2 DIABETES MELLITUS WITHOUT COMPLICATIONS SNOMED Code(s): 52569215 Comment: Hemoglobin A1c 7.4%. Moderate control with SSI. Continue in hospital. Resume metformin at discharge if GFR is above 30. Can increase dose to 2,000mg daily. May need additional antihyperglycemic agent. 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 Ferritin in normal range. Inflammatory markers up. Could be due to URI. No other obvious cause. Would recommend repeat inflammatory markers at follow up to assess for chonic inflammation causing anemia. Erythropoetin level pending. (8) DVT prophylaxis Current Visit: Yes Status: Acute Code(s): DSS9874 - SNOMED Code(s): 115031585 Comment: Heparin SubQ. (9) DNR (do not resuscitate) Current Visit: Yes Status: Acute Status and Disposition: Inpatient.
[2018-02-24] MEDS: Fluticasone NASAL SPRAY 50MCG* 16 gm SPRAY BTL BOTH NARES SCH (21:31)
[2018-02-25 05:34] LABS: ABS Basophils 0 10^3/ul (0-0.2); ABS Eosinophils 0.2 10^3/ul (0-0.6); ABS Lymphocytes 1.1 10^3/ul (1.0-4.8); ABS Monocytes 0.5 10^3/ul (0-0.8); ABS Neutrophils 3.3 10^3/ul (1.5-7.7); ABS Nucleated RBC 0 10^3/ul; Eosinophil % 3.5 % (0-6); Hematocrit 28 % (42-52); Hemoglobin 9.7 g/dl (14.0-18.0); Lymphocyte % 20.7 % (25-47); Mean Corpuscular HGB Conc 35 g/dl (31-36); Mean Corpuscular Hemoglobin 32 pg (27-31); Mean Corpuscular Volume 92 fL (80-94); Mean Platelet Volume 8.6 um3 (7.4-10.4); Nucleated Red Blood Cells % 0; Platelet Count 154 10^3/ul (150-450); Red Blood Count 3.07 10^6/ul (4.00-5.40); Red Cell Distribution Width 14 % (10.5-15); White Blood Count 5.1 10^3/ul (3.5-10.8)
[2018-02-25] MEDS: Heparin VIAL(*) 5000 UNITS/ML VIAL (FIVE THOUSAND) SUBCUT SCH (05:45)
[2018-02-25 05:51] LABS: EGFR Non-African American 33.8 (>60)
[2018-02-25 07:46] VITALS: BP 140/60
[2018-02-25] MEDS: Aspirin 81 mg CHEW TAB* 81 MG TAB.CHEW PO SCH (08:17)
[2018-02-25] MEDS: Metoprolol Succinate XL TAB* 50 MG PO SCH (08:17)
[2018-02-25] MEDS: Lisinopril TAB* 5 MG PO SCH (08:17)
[2018-02-25] MEDS: Insulin LISPRO* 1 UNITS UNIT SUBCUT SCH (08:17)
[2018-02-25] MEDS: Furosemide TAB* 40 MG PO SCH (08:17)
[2018-02-25] MEDS: Mometasone/Formoter 200/5 MDI INH SCH (08:32)
--- NOTE | 2018-02-25 09:31 | RAD ---
HISTORY: Monitor Pulmonary Edema COMPARISONS: February 22, 2018 VIEWS: 1: frontal portable view of the chest at 8:50 AM FINDINGS: LINES AND TUBES: None. CARDIOMEDIASTINAL SILHOUETTE: The cardiomediastinal silhouette is normal for portable technique. PLEURA: There are calcified pleural plaques. There is a small right pleural effusion. LUNG PARENCHYMA: The lungs are clear. The airspace disease noted on CT is not well-visualized on the current examination. ABDOMEN: The upper abdomen is clear. There is no subphrenic gas. BONES AND SOFT TISSUES: No bone or soft tissue abnormalities are noted. IMPRESSION: 1. CALCIFIED PLEURAL PLAQUES. 2. SMALL RIGHT PLEURAL EFFUSION.
--- NOTE | 2018-02-26 10:07 | DS ---
CC: Dr. Silveira * DISCHARGE SUMMARY: DATE OF ADMISSION: 02/22/18. DATE OF DISCHARGE: 02/25/18. PRIMARY CARE PROVIDER: Dr. Silveira. MY ATTENDING WHILE IN THE HOSPITAL: Dr. Valeria Goldsmith.* (DICTATED BY MELISSA LANGFORD) PRIMARY DISCHARGE DIAGNOSIS: Acute congestive heart failure exacerbation. SECONDARY DISCHARGE DIAGNOSES: 1. Chronic obstructive pulmonary disease. 2. History of colon cancer, status post resection. 3. Diabetes mellitus type 2. 4. Hypertension. STUDIES DONE WHILE IN THE HOSPITAL: Chest x-ray from 02/22/18, read as: The x- ray findings could be cardiogenic pulmonary edema according to the patient's clinical presentation, increased densities overlying the lungs corresponding to calcified pleural plaque seen on the previous CT of the chest. Please correspond with history of asbestos exposure. Chest CT from 02/22/18, read as: Relative to the previous CT of the chest, there is an interval development of a [id number] right side pleural effusion, trace left pleural effusion, and patchy ground glass densities, differential of this pulmonary edema due to vascular congestion, multifocal pneumonia, inflammatory Lyme disease or neoplasm and stable findings could grossly classify plaques on the superior anterior pleura and the bilateral lung base adjacent to diaphragm. Please correlate to exposure to asbestos. Additional chronic and degenerative changes related to the patient's current clinical presentation. Electrocardiogram from 02/22/18, shows left bundle-branch block; ST elevation in V1 through V4; ST depression in V5, V6, I, and aVL; prolonged MN interval with 90, QTc 492, one PAC. No significant abnormalities. Repeat EKG from 02/23 , shows no significant changes from previous exam. Chest x-ray from 02/25/18, shows calcified plaque, small right pleural effusion. A transthoracic echocardiogram on 02/22/18, read as: Left ventricular size is moderately to severely dilated in multiple regions, occasional wall motion abnormalities, has mildly decreased left ventricular systolic function. He has an ejection fraction of 30% to 35%. There is left ventricular septal wall motion abnormality observed, possibly in the presence of left bundle-branch block and normal left ventricular systolic function observed. Left atrium was mildly to severely dilated. Right ventricular cavity size normal. Right ventricular global systolic function is normal. Right atrium is mildly dilated. Aortic valve is trileaflet. The mitral valve leaflets are mildly thickened. There was a mild aortic regurgitation. There is mild aortic stenosis. The degree of aortic stenosis may be underestimated due to the low EF. The highest aortic valve velocity obtained was from the A5C view. The mitral valve leaflets are mildly thickened. There is moderate mitral regurgitation. There is no evidence of mitral stenosis. Tricuspid leaflets are normal. Unable to ascertain the right ventricular systolic pressure. No tricuspid stenosis. Pericardial effusion. MEDICATIONS AT DISCHARGE: 1. Asmanex 220 mcg 1 puff inhalation b.i.d. 2. Aspirin 325 mg p.o. b.i.d.. 3. Ventolin 1 puff inhalation q.6 hours as needed. 4. Lactose-reduced fluid 1 bottle p.o. daily. 5. Tylenol 650 mg p.o. q. 4 hours as needed for pain. 6. Docusate 100 mg p.o. b.i.d. as needed for constipation. 7. Lisinopril 5 mg p.o. daily. 8. Metoprolol succinate 50 mg p.o. daily. 9. Furosemide 20 mg p.o. daily as needed. 10. Metformin 1000 mg p.o. b.i.d. New medications at discharge: 1. Metformin 1000 mg p.o. b.i.d. 2. Furosemide. 3. Metoprolol. 4. Lisinopril. 5. Docusate. 6. Tylenol. Medications discontinued at discharge: 1. Metformin 1000 mg p.o. daily. HOSPITAL COURSE: This is a brief summary of the patient's presentation. For more details, please see history and physical from Dr. Michelle Peraza on . In brief, the patient is an 87-year-old male with a past medical history significant for the above, who presented with worsening shortness of breath for several days to the point where he could not do any exertional activity without severe shortness of breath as well as dyspnea at rest. The patient endorses orthopnea at that time, but later denied it. The patient has chronic cough, has not changed. The patient was recently diagnosed with asthma and started on Asmanex. The patient has not had formal pulmonary function testing to his knowledge. The patient has not gained any weight. The patient has a low-salt diet. The patient uses an albuterol inhaler, which at some times helps his shortness of breath. The patient in the emergency department was found to have the chest x-ray read as above with a BNP of 1685. Creatinine of 1.53. Troponin I of 0.07, repeat 0.08, 0.001 and 0.08. Hemoglobin of 10. The patient was admitted to the hospital, given Lasix 40 mg IV daily. The patient had low magnesium, which was repleted. The patient's blood glucose was monitored and was started on sliding scale insulin while in the hospital. The patient's blood cultures and urine cultures were negative. The patient improved greatly over the first day with the administration of Lasix to the point where he was able to walk in the [place] with no shortness of breath. The patient states he was essentially back to his baseline. The patient had an echocardiogram read as above. The patient was referred to cardiac consultation, which would likely follow a stress testing and possible cardiac catheterization to rule out ischemic causes for his heart failure, which he declined at this point in his life. The patient opted for medical therapy only. The patient states that his shortness of breath had been getting worse with activity for approximately 1 year. The patient had pulse oximetry, which sowed 1 hour 26 minutes 24 seconds with an SpO2 of less than 90. The longest time of desaturation was 4 minutes and 36 minutes. The patient denied ever been told he snores, but his daughter states he does. The patient never had a formal sleep evaluation. The patient denied any knowledge of chronic kidney disease. The patient was started on metoprolol and lisinopril, which he tolerated well. His blood pressure was well controlled after the initiation of these agents. His blood pressure was significantly elevated up to 192/119, initially in his hospitalization. The patient had no other complaints from his hospitalization. The patient continued to make urine on Lasix, which was tapered. The patient's hemoglobin A1c was found to be 7.4. The patient had an elevated CRP at 28.8, which stayed constant throughout his hospitalization. The patient also had an elevated ESR to 68. The patient had iron studies, which were consistent with anemia of chronic disease with a decreased iron, decreased iron saturation, decreased transferrin, and normal ferritin. The patient had an elevated erythropoietin level of 40. The patient had normal B12 level, normal folate, normal TSH, LDL cholesterol of 95, HDL cholesterol of 43, triglycerides of 90, cholesterol 157. The patient was anxious and amenable for discharge on 02/25/18. PHYSICAL EXAMINATION ON DAY OF DISCHARGE: General: The patient is an 87-year- old male, who appears stated age, sitting comfortably in bed, in no acute distress. Vital Signs: At time of discharge, temperature 98.6, pulse rate 81, respiratory rate 18, oxygen saturation 100% on room air, blood pressure 140/60. HEENT: Head normocephalic, atraumatic. Sclerae anicteric. No conjunctival injection. Nasal mucosa moist. Oral mucosa moist. No pharyngeal erythema, discharge or exudate. Neck: Supple, nontender. No lymphadenopathy. No carotid bruit auscultated. No JVD. Cardiac: Regular rate and rhythm. No clicks, murmurs, gallops or rubs. Pulses 2+ in dorsalis pedis, posterior tibialis, and radial areas. No lower extremity edema noted. No calf tenderness. Respiratory: Clear to auscultation bilaterally. No wheezes, rales or rhonchi. Good air exchange bilaterally. Abdomen: Soft, nontender, nondistended. Bowel sounds present and normoactive in all 4 quadrants. No hepatosplenomegaly. No abdominal bruits auscultated. No hepatojugular reflux. Genitourinary: No suprapubic or CVA tenderness. Skin: Clean, dry, and intact. No rash. Neuro: Cranial nerves II through XII intact. No focal deficits. Alert and oriented x3. Psychiatric: Pleasant and cooperative. LABORATORY DATA: On the day of discharge, white blood cell count 5.1, hemoglobin 9.7, hematocrit 28, MCV 32. Sodium 138, BUN 49, creatinine 1.9, glucose 160, magnesium 2.2, calcium 9.1. DISCHARGE PLAN: The patient will be discharged to home. The patient should follow up closely with his primary care provider for general management of his newly diagnosed CHF. The patient had not taken his antihypertensives for approximately 2 years and stated that his blood pressure had been significantly high every time he checked it during that time. The patient has several focal wall motion abnormalities, but refuses a cardiac catheterization. The patient should have an echo rechecked after 3 months of antihypertensive therapy to assess for improvement in cardiac function related to cessation of hypertension. If there is no improvement at this time, Cardiology referral should be discussed with the patient or sooner at the discretion of the patient' s primary care provider. The patient should have a repeat BNP drawn within one week to assess for continued decrease in his creatinine. The patient's current decrease in creatinine could be related to the initiation of lisinopril therapy as well as diuresis. The patient has an elevated BUN and creatinine ratio and will take Lasix at this point only on as needed basis likely at his dry weight. The patient should weigh himself daily and for any weight gain greater than 3 pounds, he should take Lasix 20 mg for which he was provided a prescription. If he continues to gain weight after having taken this, he should call his primary care provider. The patient should be recommended to have a sleep study , as he showed signs of sleep apnea while in the hospital, based on overnight pulse oximetry. The patient's anemia showed signs of anemia of chronic disease. The patient has an elevated CRP and ESR, unknown cause. The patient has no previous lab results to compare to. They should be rechecked at a point in the future and cause of chronic inflammation should be investigated if the patient continues to have elevated creatinine. This could be related to the patient's chronic kidney disease though his erythropoietin is appropriately elevated, in the setting of his anemia. Causes of the patient's anemia and chronic inflammation could include an occult malignancy including colon cancer. The patient should follow up with Gastroenterology for screening colonoscopies as he has a history of colon cancer. The patient should have a heart-healthy diet without caffeine. The patient should particularly try to adhere to low sodium diet. The patient for any shortness of breath he should take his rescue inhaler for persistent shortness of breath. If diuresis should be attempted, the patient could change this to Asmanex daily. The patient could benefit from formal PFTs to further elucidate his underlying lung disorder. The patient should return to the hospital for alarming symptoms such as chest pain, severe shortness of breath, syncope or other alarming symptoms. TIME SPENT: Approximately, 60 minutes was spent on the discharge, 30 of which was spent [id number] with the patient, obtaining history and physical and discussing the treatment plan. MELISSA LANGFORD [id number]/[facility] #: [id number] YUVAL
== END 2018-02-25 11:20 | disposition home or self-care (01) | DRG 292 ==
LOC: ED 17:21 → MEDTELE 19:54 → OBSVTOIN 02-23 14:46
PROVIDERS: ADMIT Pediatrics; ATTEND Hospitalist
DX: I11.0 Hypertensive heart disease with heart failure (principal); I31.3 Pericardial effusion (noninflammatory); I24.8 Other forms of acute ischemic heart disease; E11.9 Type 2 diabetes mellitus without complications; I50.23 Acute on chronic systolic (congestive) heart failure; I44.7 Left bundle-branch block, unspecified; I08.0 Rheumatic disorders of both mitral and aortic valves; D63.8 Anemia in other chronic diseases classified elsewhere; R05 Cough; Z66 Do not resuscitate; M06.9 Rheumatoid arthritis, unspecified; J43.9 Emphysema, unspecified; J61 Pneumoconiosis due to asbestos and other mineral fibers; Z85.038 Personal history of other malignant neoplasm of large intestine; Z90.49 Acquired absence of other specified parts of digestive tract; Z79.82 Long term (current) use of aspirin; Z79.84 Long term (current) use of oral hypoglycemic drugs; Z87.891 Personal history of nicotine dependence
CPT/HCPCS: 36415; 71045; 71046; 71250; 80048; 80053; 80061; 81003; 81015; 82550; 82553; 82607; 82668; 82728; 82746; 83036; 83540; 83550; 83605; 83735; 83880; 84443; 84484; 85025; 85652; 85730; 86140; 87040; 87086; 93005; 93306; 94640; 94762; 99212; 99283; A9270-GY; C8929; G0378; G0463; J1644; J1940; J3475